=== PATIENT | female | born 1930 | race Caucasian/White ===

== ENCOUNTER 2018-06-17 20:34 | Inpatient (IN) | payer MEDICARE, MEDICAID ==
[2018-06-17] MEDS ORDERED: Metoclopramide 10 MG/2 ML SDV IVPUSH ONE (21:01)
--- NOTE | 2018-06-17 21:01 | EDM.PDOC ---
ED HPI GENERAL MEDICAL PROBLEM - General Chief Complaint: Abdominal Pain Stated Complaint: nausea vomiting Time Seen by Provider: 06/17/18 20:51 Source of Information: Reports: Patient, Family History Limitations: Reports: No Limitations - History of Present Illness INITIAL COMMENTS - FREE TEXT/NARRATIVE: 87-year-old female presents to the ED with her daughter. Patient has significant dementia. The history suggests that she's had vomiting for the last 4 days. Nothing is stayed down today at all. She tried some toast earlier this morning which came back up and a below-knee sandwich at noon came back up as well. Emesis is primarily bilious and light cooper in color. No noted by the daughter. Or she came into the ED. Nausea comes in waves according to the patient. She is a very vague historian. She complains claims that her abdominal pain is kind of diffuse and can localize attend one spot. Previous bowel obstruction many years ago requiring open surgery. Unclear what surgery she may have had prior to this. Possible hysterectomy. Far as the daughter knows she still has her gallbladder and appendix in. Patient is very weak and pallid. She is afebrile on exam. She prefers to lie still with her eyes closed but does answer questions when probed. Patient reports last bowel was probably 2 days ago but she is uncertain. Onset: Gradual Onset Date: 06/14/18 (Apparently has been vomiting intermittently for the last 4 days. Not much food or fluid has stay down at all.) Duration: Day(s):, Getting Worse Location: Reports: Abdomen (Complaints of diabetes abdominal discomfort but not feeling all that bloated. She is unsure if she is passing flatus.) Quality: Reports: Other (Intractable nausea and vomiting 4 days.) Severity: Moderate Improves with: Reports: None Worsens with: Reports: None Context: Reports: Other (Spontaneous occurrence of nausea vomiting associated with diffuse abdominal pain.). Denies: Activity, Exercise, Lifting, Sick Contact, Trauma Associated Symptoms: Reports: Confusion, Loss of Appetite, Malaise, Nausea/ Vomiting (Intractable for the last 4 days.), Shortness of Breath. Denies: Chest Pain (Patient has advanced dementia.), Cough, cough w sputum, Rash, Seizure, Syncope Treatments ASSEMBLY LINE UPHOLSTERER: Reports: Other (see below) (Likely vomited up the tramadol.) Other Treatments ASSEMBLY LINE UPHOLSTERER: tramadol at 1700 - Related Data Allergies Allergy/AdvReac Type Severity Reaction Status Date / Time No Known Allergies Allergy Verified 06/17/18 20:47 Home Meds: Home Meds Ibuprofen [Advil] 200 mg PO ASDIRECTED PRN 06/17/18 [History] Past Medical History HEENT History: Reports: Hard of Hearing, Impaired Vision Gastrointestinal History: Reports: Bowel Obstruction RADIO DISPATCHER History: Reports: Psychiatric History: Reports: Dementia - Past Surgical History Female Surgical History: Reports: Other (See Below) Other Female Surgeries/Procedures: prolapsed uterus with revision Social & Family History - Family History Family Medical History: Noncontributory - Tobacco Use Smoking Status *Q: Never Smoker - Caffeine Use Caffeine Use: Reports: Coffee - Recreational Drug Use Recreational Drug Use: No - Living Situation & Occupation Living situation: Reports: , Alone Occupation: Retired ED ROS GENERAL - Review of Systems Review Of Systems: See Below Constitutional: Reports: Malaise, Weakness, Fatigue, Decreased Appetite, Weight Loss. Denies: Fever, Chills HEENT: Reports: Glasses, Vision Change (Apparently has macular degeneration.) Respiratory: Reports: Shortness of Breath. Denies: Wheezing, Pleuritic Chest Pain (Valley short of breath.), Cough, Sputum Cardiovascular: Reports: Blood Pressure Problem, Dyspnea on Exertion, Lightheadedness. Denies: Chest Pain, Claudication, Edema, Orthopnea (Chronic hypertension) Endocrine: Reports: Fatigue (Chronically) GI/Abdominal: Reports: Abdominal Pain, Nausea (See history of present illness), Vomiting (Reportedly having nausea and vomiting for last 4 days.) : Reports: Frequency, Incontinence (Urge and stress components) Musculoskeletal: Reports: Back Pain, Joint Pain (Knees hips neck and shoulders at times) Skin: Reports: Pallor (Versus fairly easily.), Bruising Neurological: Reports: Confusion, Difficulty Walking (Weakness at this time), Weakness. Denies: Dizziness, Headache, Numbness, Pre-Existing Deficit, Seizure , Syncope, Tingling Psychiatric: Reports: No Symptoms Hematologic/Lymphatic: Reports: No Symptoms Immunologic: Reports: No Symptoms ED EXAM, GI/ABD - Physical Exam Exam: See Below Exam Limited By: Altered Mental Status (Mildly confused but she does answer questions to the best of her ability at this time. The daughter indicates that answers need to be taken with a gr of salt as her dementia is fairly advanced) General Appearance: No Apparent Distress (Prefers to lie still with her eyes closed but does open them to answer questions.), Thin, Other (Very pallid.) Eyes: Bilateral: Proptosis (Pallor both lower peripheral margins) Throat/Mouth: Other (Tongue is mildly dry.) Head: Atraumatic, Normocephalic Neck: Normal Inspection, Limited Range of Motion. No: Carotid Bruit, Lymphadenopathy (L), Lymphadenopathy (R) (Loss of flexion and extension) Respiratory/Chest: No Respiratory Distress, Lungs Clear, Normal Breath Sounds, No Accessory Muscle Use Cardiovascular: Regular Rate, Rhythm, No Edema, No Gallop, No Murmur, No Rub. No: Normal Peripheral Pulses GI/Abdominal Exam: Soft, Tender (Perhaps very mildly tender left mid lateral abdomen), Abnormal Bowel Sounds (Signs are slightly Hyperactive throughout all 4 quadrants.). No: Guarding, Rigid ( and left upper quadrant without rebound or guarding), Rebound Back Exam: Normal Inspection, Full Range of Motion, Other. No: CVA Tenderness ( L), CVA Tenderness (R) Extremities: Normal Inspection, Normal Range of Motion, Non-Tender, No Pedal Edema Neurological: Alert, CN II-XII Intact. No: Oriented (disoriented to time) Psychiatric: Flat Affect Skin Exam: Warm, Dry, Intact, Pallor (Quite pallid.) EKG INTERPRETATION EKG Date: 06/17/18 Time: 22:01 Rhythm: NSR Rate (Beats/Min): 62 Bois D Arc: LAD-Left Bois D Arc Deviation (Left axis deviation of -44.) P-Wave: Enlarged (Suspect left atrial hypertrophy) QRS: Other (Left ventricular hypertrophy pattern. There is a nonspecific intraventricular conduction delay.) ST-T: Other (T-wave flattening V4 to V6 and lead 2. U-wave inversion in lead 3 and aVF nonspecific findings) QT: Prolonged (Mildly prolonged.) EKG Interpretation Comments: Abnormal ECG Course - Vital Signs Last Recorded V/S: Last Vital Signs Temp 36.6 C 06/17/18 20:44 Pulse 65 06/17/18 20:44 Resp 18 06/17/18 20:44 BP 174/72 H 06/17/18 20:44 Pulse Ox 98 06/17/18 20:44 - Orders/Labs/Meds Orders: Active Orders 24 hr Category Date Time Status EKG Documentation Completion [RC] STAT Care 06/17/18 21:02 Active Abdomen 1V Flat [CR] Stat Exams 06/17/18 21:03 Taken Chest 1V Frontal [CR] Stat Exams 06/17/18 21:02 Taken CULTURE BLOOD [BC] Stat Lab 06/17/18 21:20 Received CULTURE BLOOD [BC] Stat Lab 06/17/18 21:35 Received Dextrose 5%-Lactated Ringers 1,000 ml Med 06/17/18 21:15 Active IV ASDIRECTED Blood Culture x2 Reflex Set [OM.PC] Stat Oth 06/17/18 21:03 Ordered Medication Orders Dextrose/Lactated Ringer's (Dextrose 5%-Lactated Ringers) 1,000 mls @ 250 mls/ hr IV ASDIRECTED MANOJ Last Admin: 06/17/18 21:10 Dose: 250 mls/hr Labs: Laboratory Tests 06/17/18 06/17/18 06/17/18 Range/Units 21:00 21:00 21:00 WBC 9.97 (3.98-10.04) K/mm3 RBC 4.42 (3.98-5.22) M/mm3 Hgb 13.6 (11.2-15.7) gm/L Hct 39.6 (34.1-44.9) % MCV 89.6 (79.4-94.8) fl MCH 30.8 (25.6-32.2) pg MCHC 34.3 (32.2-35.5) g/dl RDW Std Deviation 40.8 (36.4-46.3) fL Plt Count 286 (182-369) K/mm3 MPV 10.9 (9.4-12.3) fl Neutrophils % (Manual) 85 H (40-60) % Band Neutrophils % 0 (0-10) % Lymphocytes % (Manual) 12 L (20-40) % Atypical Lymphs % 0 % Monocytes % (Manual) 2 (2-10) % Eosinophils % (Manual) 1 (0.7-5.8) % Basophils % (Manual) 0 L (0.1-1.2) Platelet Estimate Adequate RBC Morph Comment Normal PT 10.3 (9.5-12.1) SECONDS INR 0.94 Sodium 128 L (136-145) mEq/L Potassium 4.0 (3.5-5.1) mEq/L Chloride 92 L (98-107) mEq/L Carbon Dioxide 23 (21-32) mEq/L Anion Gap 17.0 H (5-15) BUN 16 (7-18) mg/dL Creatinine 1.5 H (0.55-1.02) mg/dL Est Cr Clr Drug Dosing 23.56 mL/min Estimated GFR (MDRD) 33 (>60) mL/min BUN/Creatinine Ratio 10.7 L (14-18) Glucose 113 (83-115) mg/dL Lactic Acid (0.4-2.0) mmol/L Calcium 9.1 (8.5-10.1) mg/dL Magnesium 2.0 (1.8-2.4) mg/dl Total Bilirubin 0.5 (0.2-1.0) mg/dL AST 23 (15-37) U/L ALT 22 (14-59) U/L Alkaline Phosphatase 76 (46-116) U/L CK-MB (CK-2) 2.6 (0-3.6) ng/ml Troponin I < 0.017 (0.00-0.056) ng/mL C-Reactive Protein 0.2 (<1.0) mg/dL NT-Pro-B Natriuret Pep (0-450) pg/mL Total Protein 7.1 (6.4-8.2) g/dl Albumin 3.7 (3.4-5.0) g/dl Globulin 3.4 gm/dL Albumin/Globulin Ratio 1.1 (1-2) Lipase 141 (73-393) U/L Urine Color (Yellow) Urine Appearance (Clear) Urine pH (5.0-8.0) Ur Specific [place] (1.005-1.030) Urine Protein (Negative) Urine Glucose (UA) (Negative) Urine Ketones (Negative) Urine Occult Blood (Negative) Urine Nitrite (Negative) Urine Bilirubin (Negative) Urine Urobilinogen (0.2-1.0) Ur Leukocyte Esterase (Negative) Urine RBC (0-5) /hpf Urine WBC (0-5) /hpf Ur Epithelial Cells (0-5) /hpf Urine Bacteria (FEW) /hpf Hyaline Casts (0-5) /lpf Urine Mucus (FEW) /hpf Ketones (0.0-0.3) mM 01/03/19 01/03/19 01/03/19 Range/Units 21:00 21:20 21:20 WBC (3.98-10.04) K/mm3 RBC (3.98-5.22) M/mm3 Hgb (11.2-15.7) gm/L Hct (34.1-44.9) % MCV (79.4-94.8) fl MCH (25.6-32.2) pg MCHC (32.2-35.5) g/dl RDW Std Deviation (36.4-46.3) fL Plt Count (182-369) K/mm3 MPV (9.4-12.3) fl Neutrophils % (Manual) (40-60) % Band Neutrophils % (0-10) % Lymphocytes % (Manual) (20-40) % Atypical Lymphs % % Monocytes % (Manual) (2-10) % Eosinophils % (Manual) (0.7-5.8) % Basophils % (Manual) (0.1-1.2) Platelet Estimate RBC Morph Comment PT (9.5-12.1) SECONDS INR Sodium (136-145) mEq/L Potassium (3.5-5.1) mEq/L Chloride (98-107) mEq/L Carbon Dioxide (21-32) mEq/L Anion Gap (5-15) BUN (7-18) mg/dL Creatinine (0.55-1.02) mg/dL Est Cr Clr Drug Dosing mL/min Estimated GFR (MDRD) (>60) mL/min BUN/Creatinine Ratio (14-18) Glucose (83-115) mg/dL Lactic Acid 0.9 (0.4-2.0) mmol/L Calcium (8.5-10.1) mg/dL Magnesium (1.8-2.4) mg/dl Total Bilirubin (0.2-1.0) mg/dL AST (15-37) U/L ALT (14-59) U/L Alkaline Phosphatase (46-116) U/L CK-MB (CK-2) (0-3.6) ng/ml Troponin I (0.00-0.056) ng/mL C-Reactive Protein (<1.0) mg/dL NT-Pro-B Natriuret Pep 313 (0-450) pg/mL Total Protein (6.4-8.2) g/dl Albumin (3.4-5.0) g/dl Globulin gm/dL Albumin/Globulin Ratio (1-2) Lipase (73-393) U/L Urine Color (Yellow) Urine Appearance (Clear) Urine pH (5.0-8.0) Ur Specific [place] (1.005-1.030) Urine Protein (Negative) Urine Glucose (UA) (Negative) Urine Ketones (Negative) Urine Occult Blood (Negative) Urine Nitrite (Negative) Urine Bilirubin (Negative) Urine Urobilinogen (0.2-1.0) Ur Leukocyte Esterase (Negative) Urine RBC (0-5) /hpf Urine WBC (0-5) /hpf Ur Epithelial Cells (0-5) /hpf Urine Bacteria (FEW) /hpf Hyaline Casts (0-5) /lpf Urine Mucus (FEW) /hpf Ketones 0.83 (0.0-0.3) mM 06/17/18 Range/Units 22:19 WBC (3.98-10.04) K/mm3 RBC (3.98-5.22) M/mm3 Hgb (11.2-15.7) gm/L Hct (34.1-44.9) % MCV (79.4-94.8) fl MCH (25.6-32.2) pg MCHC (32.2-35.5) g/dl RDW Std Deviation (36.4-46.3) fL Plt Count (182-369) K/mm3 MPV (9.4-12.3) fl Neutrophils % (Manual) (40-60) % Band Neutrophils % (0-10) % Lymphocytes % (Manual) (20-40) % Atypical Lymphs % % Monocytes % (Manual) (2-10) % Eosinophils % (Manual) (0.7-5.8) % Basophils % (Manual) (0.1-1.2) Platelet Estimate RBC Morph Comment PT (9.5-12.1) SECONDS INR Sodium (136-145) mEq/L Potassium (3.5-5.1) mEq/L Chloride (98-107) mEq/L Carbon Dioxide (21-32) mEq/L Anion Gap (5-15) BUN (7-18) mg/dL Creatinine (0.55-1.02) mg/dL Est Cr Clr Drug Dosing mL/min Estimated GFR (MDRD) (>60) mL/min BUN/Creatinine Ratio (14-18) Glucose (83-115) mg/dL Lactic Acid (0.4-2.0) mmol/L Calcium (8.5-10.1) mg/dL Magnesium (1.8-2.4) mg/dl Total Bilirubin (0.2-1.0) mg/dL AST (15-37) U/L ALT (14-59) U/L Alkaline Phosphatase (46-116) U/L CK-MB (CK-2) (0-3.6) ng/ml Troponin I (0.00-0.056) ng/mL C-Reactive Protein (<1.0) mg/dL NT-Pro-B Natriuret Pep (0-450) pg/mL Total Protein (6.4-8.2) g/dl Albumin (3.4-5.0) g/dl Globulin gm/dL Albumin/Globulin Ratio (1-2) Lipase (73-393) U/L Urine Color Yellow (Yellow) Urine Appearance Clear (Clear) Urine pH 6.5 (5.0-8.0) Ur Specific [place] 1.025 (1.005-1.030) Urine Protein Trace H (Negative) Urine Glucose (UA) Negative (Negative) Urine Ketones 2+ H (Negative) Urine Occult Blood Trace-intact H (Negative) Urine Nitrite Negative (Negative) Urine Bilirubin Negative (Negative) Urine Urobilinogen 0.2 (0.2-1.0) Ur Leukocyte Esterase Negative (Negative) Urine RBC 0-5 (0-5) /hpf Urine WBC 0-5 (0-5) /hpf Ur Epithelial Cells 0-5 (0-5) /hpf Urine Bacteria Not seen (FEW) /hpf Hyaline Casts 0-5 (0-5) /lpf Urine Mucus Moderate H (FEW) /hpf Ketones (0.0-0.3) mM Meds: Medications Generic Name Dose Route Start Last Admin Trade Name Freq PRN Reason Stop Dose Admin Dextrose/Lactated Ringer's 1,000 mls @ 250 mls/hr 06/17/18 21:15 06/17/18 21: 10 Dextrose 5%-Lactated Ringers IV 250 mls/hr ASDIRECTED MANOJ Administration Discontinued Medications Generic Name Dose Route Start Last Admin Trade Name Harini PRN Reason Stop Dose Admin Hydromorphone HCl 0.25 mg 06/17/18 21:02 06/17/18 21:13 Dilaudid IVPUSH 06/17/18 21:03 0.25 mg ONETIME ONE Administration Metoclopramide HCl 5 mg 06/17/18 21:01 06/17/18 21:11 Reglan IVPUSH 06/17/18 21:02 5 mg ONETIME ONE Administration Ondansetron HCl 4 mg 06/17/18 22:42 06/17/18 22:52 Zofran IVPUSH 06/17/18 22:43 4 mg ONETIME ONE Administration - Radiology Interpretation Free Text/Narrative:: 87-year-old female presents to the ED with her daughter. She apparently lives alone. Apparently she's been vomiting off and on for the last 4 days nothing to stay down at all today. She believes her last bowel movement was 2 days ago. She complains of diffuse mild abdominal pain I tried to get her to rate it and she rates it as a 1 or 2 out of 10. Does have very active bowel sounds in all 4 quadrants with minimal distention and tympany to percussion. Tenderness appreciated on palpation left upper quadrant left lateral midabdomen. She appears quite thin. She is very pallid. Afebrile. Vital signs are essentially normal. Plan 1 view chest x-ray one view abdomen 2 done IV will be D5 Ringer's lactate at 250 mils per hour. Given Reglan 5 mg IV for nausea relief and Dilaudid 0.25 mg IV for abdominal pain relief. The T labs including blood cultures 2 will be changed serum lactic acid and serum ketones as well. No ketones on her breath however. Urinalysis be obtained by catheterization. - Re-Assessments/Exams Free Text/Narrative Re-Assessment/Exam: 06/17/18 21:53 x-ray of the abdomen reveals increased stool throughout the right hemicolon and some in the rectal vault. There is no bowel obstruction signs or symptoms. Bladder appears to be slightly full on plain films as well. She has a deformity compatible with an old fracture of the pubic symphysis on the left side. He is to be well-healed. Chest x-ray reveals clear lung salvador and normal cardiac silhouette. Aortic arch is heavily calcified. 06/17/18 22:05 Total white count is 9.97 with 85% neutrophils no bands cells reported. Hemoglobin is 13.6 with hematocrit of 39.6. Plan account is 286,000. PT is 10.3 with an INR of 0.94. Sodium is low at 128. Potassium is 4.0. Chloride 92 with a bicarbonate of 23. And a gap is mildly elevated at 17.0. BUN is 16 with a creatinine of 1.5. GFR is 33 i.e. stage III chronic kidney disease. Glucose is 113. Calcium is 9.1. Lactic acid was 0.9. Magnesium is 2.0. Liver function is normal. CK-MB fraction is 2.6 troponin I is less than 0.017. C -reactive protein is 0.2. BNP is 313. Lipase 141 ketones elevated at 0.83. 06/17/18 23:29 Urinalysis shows a trace of protein .2+ ketones .leukocyte esterase negative. 06/18/18 00:[address] Sanchez cone former hospitalist and the plan will be to admit her to the hospital on telemetry. She will be admitted for observation status in the hopes of correcting her metabolic acidosis and ketosis from not eating 4 days mild volume depletion. And hyponatremia. Departure - Departure Time of Disposition: 00:36 Disposition: Home, Self-Care 01 Condition: Fair Clinical Impression: Nausea and vomiting in adult patient, Hyponatremia, Metabolic acidosis with increased anion gap and accumulation of organic acids, Constipation by delayed colonic transit Abdominal pain Qualifiers: Abdominal location: generalized Qualified Code(s): R10.84 - Generalized abdominal pain - Discharge Information *PRESCRIPTION DRUG MONITORING PROGRAM REVIEWED*: Not Applicable *COPY OF PRESCRIPTION DRUG MONITORING REPORT IN PATIENT DONNA: Not Applicable Instructions: Nausea and Vomiting, Adult Referrals: PCP,None [Primary Care Provider] - Forms: ED Department Discharge - My Orders Last 24 Hours: My Active Orders 06/17/18 21:02 EKG Documentation Completion [RC] STAT Chest 1V Frontal [CR] Stat 06/17/18 21:03 Abdomen 1V Flat [CR] Stat Blood Culture x2 Reflex Set [OM.PC] Stat 06/17/18 21:15 Dextrose 5%-Lactated Ringers 1,000 ml IV ASDIRECTED 06/17/18 21:20 CULTURE BLOOD [BC] Stat 06/17/18 21:35 CULTURE BLOOD [BC] Stat - Assessment/Plan Last 24 Hours: My Active Orders 06/17/18 21:02 EKG Documentation Completion [RC] STAT Chest 1V Frontal [CR] Stat 06/17/18 21:03 Abdomen 1V Flat [CR] Stat Blood Culture x2 Reflex Set [OM.PC] Stat 06/17/18 21:15 Dextrose 5%-Lactated Ringers 1,000 ml IV ASDIRECTED 06/17/18 21:20 CULTURE BLOOD [BC] Stat 06/17/18 21:35 CULTURE BLOOD [BC] Stat
[2018-06-17] MEDS ORDERED: HYDROmorphone 1 MG/ML Syringe IVPUSH ONE (21:02)
[2018-06-17] MEDS ORDERED: Dextrose 5%-Lactated Ringers 1,000 ML IV SCH (21:15)
[2018-06-17] MEDS ORDERED: Ondansetron 4 MG/2 ML SDV IVPUSH ONE (22:42)
[2018-06-18] MEDS: Dextrose 5%-Lactated Ringers 1,000 ML IV SCH ×4 (01:30→21:21)
--- NOTE | 2018-06-18 06:59 | PCM.HP ---
H&P History of Present Illness - General Date of Service: 06/18/18 Admit Problem/Dx: Admission Diagnosis/Problem Admission Diagnosis/Problem Hyponatremia Source of Information: Old Records, Provider, RN, RN Notes Reviewed History Limitations: Reports: No Limitations - History of Present Illness Initial Comments - Free Text/Narative: Bridget Holder is an 87 yo female patient who presented to our ED yesterday evening with her daughter for vomiting. Patient has significant dementia however her daughter reports emesis has been ongoing for past 4 days. She reports she has been unable to keep anything down at all the day up to coming to the ED. Emesis reported to be bilious and light cooper in color as noted by the daughter. Nausea comes in waves according to the patient and she is noted to be a very vague historian. She reports diffuse abdominal pain and a prior bowel obstruction many years ago which required open surgery. Daughter reports as far she no she still has her gallbladder and appendix. Patient is very weak and palate. She is afebrile on exam. Patient prefers to lie still with her eyes closed but does ask questions when asked. Reports last bowel movement was 2 days ago but she is uncertain exactly. In the ED a 12-lead EKG was obtained showing sinus rhythm at a rate of 62 bpm. Left axis deviation was noted in the large P wave was also noted. LVH pattern was observed along with a nonspecific intraventricular conduction delay. T- wave flattening in V4 through V6 and lead II to along with T-wave inversion in III and aVF are noted along with a mildly prolonged QT. Temp is 36.6C. Pulse 55. Respirations 18. Blood pressure high at 174/72. Pulse ox 98%. Labs are obtained: WBC is normal at 9.97. Hemoglobin 13.6. Hematocrit 39.6. She is normocytic. Platelets good at 286,000. Neutrophils are elevated at 85%. Band neutrophils are noted to be 0. PT is 10.3. INR 0.94. Sodium is low at 128. Potassium 4.0. Chloride 92. Carbon dioxide 23. Anion gap is high at 17.0. BUN is 16. Creatinine 1.5. EGFR 33. Glucose is 113. Calcium 9.1. Magnesium 2.0. Total bilirubin 0.5. AST is 23, ALT 22, alkaline phosphatase 76. CK-MB is 2.6. Troponin is less than 0.017. CRP is 0.2. Protein 7.1. Albumin is 3.7. Lipase 141. Lactic acid is 0.9. ProBNP is 313. Urine ketones are noted to be 0.83. UA is negative however trace protein, 2+ ketones, trace intact blood are noted. Given 0.25 mg IV Dilaudid, 5 mg Reglan, 4 mg Zofran. She also started on D5 LR at 125 mils an hour. His abdomen is obtained and reportedly reveals increased stool throughout the right hemicolon and rectal full no signs of bowel obstruction bladder appears to be full and there is a deformity compatible with old fracture on the pubic symphysis of the left side. It's appears to be well healed. Nothing acute is noted. She subsequently admitted to the medical floor observation status on telemetry. She has a history of: Hard of hearing, impaired vision, prior bowel obstruction, dementia. She is a nonsmoker. She does not have a primary care provider listed. A DNR/DNI. 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: Psychiatric History: Reports: Dementia - Past Surgical History Female Surgical History: Reports: Other (See Below) Other Female Surgeries/Procedures: prolapsed uterus with revision Social & Family History - Family History Family Medical History: Noncontributory - Tobacco Use Smoking Status *Q: Never Smoker Second Hand Smoke Exposure: No - Caffeine Use Caffeine Use: Reports: Coffee - Recreational Drug Use Recreational Drug Use: No - Living Situation & Occupation Living situation: Reports: , Alone Occupation: Retired H&P Review of Systems - Review of Systems: Review Of Systems: See Below General: Reports: No Symptoms, Malaise, Weakness, Fatigue, Decreased Appetite. Denies: Fever, Chills HEENT: Reports: No Symptoms. Denies: Headaches Pulmonary: Reports: No Symptoms. Denies: Shortness of Breath, Wheezing, Pleuritic Chest Pain, Cough, Sputum Cardiovascular: Reports: No Symptoms. Denies: Chest Pain, Palpitations, Dyspnea on Exertion, Lightheadedness Gastrointestinal: Reports: No Symptoms. Denies: Abdominal Pain, Hematemesis, Hematochezia, Melena, Nausea, Vomiting Genitourinary: Reports: Frequency, Incontinence. Denies: Pain Musculoskeletal: Reports: No Symptoms Skin: Reports: No Symptoms Psychiatric: Reports: Confusion (Chronic dementia ) Neurological: Reports: No Symptoms. Denies: Difficulty Walking, Gait Disturbance Hematologic/Lymphatic: Reports: Easy Bruising Immunologic: Reports: No Symptoms Exam - Exam Exam: See Below - Vital Signs Vital Signs: Last Vital Signs Temp 97.9 F 06/18/18 06:02 Pulse 57 L 06/18/18 06:02 Resp 16 06/18/18 06:02 BP 142/82 H 06/18/18 06:02 Pulse Ox 92 L 06/18/18 06:02 Weight: 137 lb 1.6 oz - Exam Quality Assessment: DVT Prophylaxis General: Alert, Cooperative. No: Oriented, Mild Distress HEENT: Conjunctiva Clear, EACs Clear, EOMI, Hearing Intact, Mucosa Moist & [place] , Nares Patent, Posterior Pharynx Clear, PERRLA Neck: Supple, Trachea Midline Lungs: Clear to Auscultation, Normal Respiratory Effort Cardiovascular: Regular Rate, Regular Rhythm GI/Abdominal Exam: Normal Bowel Sounds, Soft, Non-Tender, No Distention, No Abnormal Bruit (Female) Exam: Deferred Rectal (Female) Exam: Deferred Back Exam: Normal Inspection, Full Range of Motion Extremities: Normal Inspection, Normal Range of Motion, Non-Tender, No Pedal Edema, Normal Capillary Refill Skin: Warm, Dry, Intact Neurological: Cranial Nerves Intact (grossly ) Neuro Extensive - Mental Status: Alert, Normal Mood/Affect - Patient Data Lab Results Last 24 hrs: Laboratory Results - last 24 hr 06/17/18 06/17/18 06/17/18 Range/Units 21:00 21:00 21:00 WBC 9.97 (3.98-10.04) K/mm3 RBC 4.42 (3.98-5.22) M/mm3 Hgb 13.6 (11.2-15.7) gm/L Hct 39.6 (34.1-44.9) % MCV 89.6 (79.4-94.8) fl MCH 30.8 (25.6-32.2) pg MCHC 34.3 (32.2-35.5) g/dl RDW Std Deviation 40.8 (36.4-46.3) fL Plt Count 286 (182-369) K/mm3 MPV 10.9 (9.4-12.3) fl Neutrophils % (Manual) 85 H (40-60) % Band Neutrophils % 0 (0-10) % Lymphocytes % (Manual) 12 L (20-40) % Atypical Lymphs % 0 % Monocytes % (Manual) 2 (2-10) % Eosinophils % (Manual) 1 (0.7-5.8) % Basophils % (Manual) 0 L (0.1-1.2) Platelet Estimate Adequate RBC Morph Comment Normal PT 10.3 (9.5-12.1) SECONDS INR 0.94 Sodium 128 L (136-145) mEq/L Potassium 4.0 (3.5-5.1) mEq/L Chloride 92 L (98-107) mEq/L Carbon Dioxide 23 (21-32) mEq/L Anion Gap 17.0 H (5-15) BUN 16 (7-18) mg/dL Creatinine 1.5 H (0.55-1.02) mg/dL Est Cr Clr Drug Dosing 23.56 mL/min Estimated GFR (MDRD) 33 (>60) mL/min BUN/Creatinine Ratio 10.7 L (14-18) Glucose 113 (83-115) mg/dL Serum Osmolality (280-300) mosm/kg Lactic Acid (0.4-2.0) mmol/L Calcium 9.1 (8.5-10.1) mg/dL Magnesium 2.0 (1.8-2.4) mg/dl Total Bilirubin 0.5 (0.2-1.0) mg/dL AST 23 (15-37) U/L ALT 22 (14-59) U/L Alkaline Phosphatase 76 (46-116) U/L CK-MB (CK-2) 2.6 (0-3.6) ng/ml Troponin I < 0.017 (0.00-0.056) ng/mL C-Reactive Protein 0.2 (<1.0) mg/dL NT-Pro-B Natriuret Pep (0-450) pg/mL Total Protein 7.1 (6.4-8.2) g/dl Albumin 3.7 (3.4-5.0) g/dl Globulin 3.4 gm/dL Albumin/Globulin Ratio 1.1 (1-2) Lipase 141 (73-393) U/L Urine Color (Yellow) Urine Appearance (Clear) Urine pH (5.0-8.0) Ur Specific [place] (1.005-1.030) Urine Protein (Negative) Urine Glucose (UA) (Negative) Urine Ketones (Negative) Urine Occult Blood (Negative) Urine Nitrite (Negative) Urine Bilirubin (Negative) Urine Urobilinogen (0.2-1.0) Ur Leukocyte Esterase (Negative) Urine RBC (0-5) /hpf Urine WBC (0-5) /hpf Ur Epithelial Cells (0-5) /hpf Urine Bacteria (FEW) /hpf Hyaline Casts (0-5) /lpf Urine Mucus (FEW) /hpf Ketones (0.0-0.3) mM 06/17/18 06/17/18 06/17/18 Range/Units 21:00 21:00 21:20 WBC (3.98-10.04) K/mm3 RBC (3.98-5.22) M/mm3 Hgb (11.2-15.7) gm/L Hct (34.1-44.9) % MCV (79.4-94.8) fl MCH (25.6-32.2) pg MCHC (32.2-35.5) g/dl RDW Std Deviation (36.4-46.3) fL Plt Count (182-369) K/mm3 MPV (9.4-12.3) fl Neutrophils % (Manual) (40-60) % Band Neutrophils % (0-10) % Lymphocytes % (Manual) (20-40) % Atypical Lymphs % % Monocytes % (Manual) (2-10) % Eosinophils % (Manual) (0.7-5.8) % Basophils % (Manual) (0.1-1.2) Platelet Estimate RBC Morph Comment PT (9.5-12.1) SECONDS INR Sodium (136-145) mEq/L Potassium (3.5-5.1) mEq/L Chloride (98-107) mEq/L Carbon Dioxide (21-32) mEq/L Anion Gap (5-15) BUN (7-18) mg/dL Creatinine (0.55-1.02) mg/dL Est Cr Clr Drug Dosing mL/min Estimated GFR (MDRD) (>60) mL/min BUN/Creatinine Ratio (14-18) Glucose (83-115) mg/dL Serum Osmolality 269 L (280-300) mosm/kg Lactic Acid 0.9 (0.4-2.0) mmol/L Calcium (8.5-10.1) mg/dL Magnesium (1.8-2.4) mg/dl Total Bilirubin (0.2-1.0) mg/dL AST (15-37) U/L ALT (14-59) U/L Alkaline Phosphatase (46-116) U/L CK-MB (CK-2) (0-3.6) ng/ml Troponin I (0.00-0.056) ng/mL C-Reactive Protein (<1.0) mg/dL NT-Pro-B Natriuret Pep 313 (0-450) pg/mL Total Protein (6.4-8.2) g/dl Albumin (3.4-5.0) g/dl Globulin gm/dL Albumin/Globulin Ratio (1-2) Lipase (73-393) U/L Urine Color (Yellow) Urine Appearance (Clear) Urine pH (5.0-8.0) Ur Specific [place] (1.005-1.030) Urine Protein (Negative) Urine Glucose (UA) (Negative) Urine Ketones (Negative) Urine Occult Blood (Negative) Urine Nitrite (Negative) Urine Bilirubin (Negative) Urine Urobilinogen (0.2-1.0) Ur Leukocyte Esterase (Negative) Urine RBC (0-5) /hpf Urine WBC (0-5) /hpf Ur Epithelial Cells (0-5) /hpf Urine Bacteria (FEW) /hpf Hyaline Casts (0-5) /lpf Urine Mucus (FEW) /hpf Ketones (0.0-0.3) mM 06/17/18 06/17/18 Range/Units 21:20 22:19 WBC (3.98-10.04) K/mm3 RBC (3.98-5.22) M/mm3 Hgb (11.2-15.7) gm/L Hct (34.1-44.9) % MCV (79.4-94.8) fl MCH (25.6-32.2) pg MCHC (32.2-35.5) g/dl RDW Std Deviation (36.4-46.3) fL Plt Count (182-369) K/mm3 MPV (9.4-12.3) fl Neutrophils % (Manual) (40-60) % Band Neutrophils % (0-10) % Lymphocytes % (Manual) (20-40) % Atypical Lymphs % % Monocytes % (Manual) (2-10) % Eosinophils % (Manual) (0.7-5.8) % Basophils % (Manual) (0.1-1.2) Platelet Estimate RBC Morph Comment PT (9.5-12.1) SECONDS INR Sodium (136-145) mEq/L Potassium (3.5-5.1) mEq/L Chloride (98-107) mEq/L Carbon Dioxide (21-32) mEq/L Anion Gap (5-15) BUN (7-18) mg/dL Creatinine (0.55-1.02) mg/dL Est Cr Clr Drug Dosing mL/min Estimated GFR (MDRD) (>60) mL/min BUN/Creatinine Ratio (14-18) Glucose (83-115) mg/dL Serum Osmolality (280-300) mosm/kg Lactic Acid (0.4-2.0) mmol/L Calcium (8.5-10.1) mg/dL Magnesium (1.8-2.4) mg/dl Total Bilirubin (0.2-1.0) mg/dL AST (15-37) U/L ALT (14-59) U/L Alkaline Phosphatase (46-116) U/L CK-MB (CK-2) (0-3.6) ng/ml Troponin I (0.00-0.056) ng/mL C-Reactive Protein (<1.0) mg/dL NT-Pro-B Natriuret Pep (0-450) pg/mL Total Protein (6.4-8.2) g/dl Albumin (3.4-5.0) g/dl Globulin gm/dL Albumin/Globulin Ratio (1-2) Lipase (73-393) U/L Urine Color Yellow (Yellow) Urine Appearance Clear (Clear) Urine pH 6.5 (5.0-8.0) Ur Specific [place] 1.025 (1.005-1.030) Urine Protein Trace H (Negative) Urine Glucose (UA) Negative (Negative) Urine Ketones 2+ H (Negative) Urine Occult Blood Trace-intact H (Negative) Urine Nitrite Negative (Negative) Urine Bilirubin Negative (Negative) Urine Urobilinogen 0.2 (0.2-1.0) Ur Leukocyte Esterase Negative (Negative) Urine RBC 0-5 (0-5) /hpf Urine WBC 0-5 (0-5) /hpf Ur Epithelial Cells 0-5 (0-5) /hpf Urine Bacteria Not seen (FEW) /hpf Hyaline Casts 0-5 (0-5) /lpf Urine Mucus Moderate H (FEW) /hpf Ketones 0.83 (0.0-0.3) mM Result Diagrams: 06/17/18 21:00 06/18/18 05:52 - Problem List (1) Abdominal pain SNOMED Code(s): 27789227 ICD Code: R10.9 - UNSPECIFIED ABDOMINAL PAIN Status: Acute Priority: Medium Current Visit: Yes Qualifiers: Abdominal location: generalized Qualified Code(s): R10.84 - Generalized abdominal pain (2) Constipation by delayed colonic transit SNOMED Code(s): 70985577 ICD Code: K59.01 - SLOW TRANSIT CONSTIPATION Status: Acute Priority: Medium Current Visit: Yes (3) Hyponatremia SNOMED Code(s): 09627389 ICD Code: E87.1 - HYPO-OSMOLALITY AND HYPONATREMIA Status: Acute Priority : High Current Visit: Yes (4) Metabolic acidosis with increased anion gap and accumulation of organic acids SNOMED Code(s): 15906690 ICD Code: E87.2 - ACIDOSIS Status: Acute Priority: High Current Visit: Yes (5) Nausea and vomiting in adult patient SNOMED Code(s): 05192718 ICD Code: R11.2 - NAUSEA WITH VOMITING, UNSPECIFIED Status: Acute Priority: High Current Visit: Yes Problem List Initiated/Reviewed/Updated: Yes Orders Last 24hrs: Active Orders 24 hr Category Date Time Status Admission Status [Patient Status] [ADT] Routine ADT 06/18/18 00:33 Active Up With Assistance [RC] ASDIRECTED Care 06/18/18 01:28 Active Clear Liquid Diet [DIET] Diet 06/18/18 Breakfast Active Abdomen 1V Flat [CR] Stat Exams 06/17/18 21:03 Taken Chest 1V Frontal [CR] Stat Exams 06/17/18 21:02 Taken COMPREHENSIVE METABOLIC PN,CMP [CHEM] Routine Lab 06/18/18 05:52 Received CULTURE BLOOD [BC] Stat Lab 06/17/18 21:20 Received CULTURE BLOOD [BC] Stat Lab 06/17/18 21:35 Received KETONES,BLOOD [CHEM] Routine Lab 06/18/18 05:52 Received Dextrose 5%-Lactated Ringers 1,000 ml Med 06/18/18 01:30 Active IV ASDIRECTED Ondansetron [Zofran] Med 06/18/18 01:28 Active 4 mg IVPUSH Q6HR PRN Blood Culture x2 Reflex Set [OM.PC] Stat Oth 06/17/18 21:03 Ordered Resuscitation Status Routine Resus Stat 06/18/18 01:28 Ordered Medication Orders Dextrose/Lactated Ringer's (Dextrose 5%-Lactated Ringers) 1,000 mls @ 150 mls/ hr IV ASDIRECTED MANOJ Last Admin: 06/18/18 01:30 Dose: 150 mls/hr Ondansetron HCl (Zofran) 4 mg IVPUSH Q6HR PRN PRN Reason: nausea Assessment/Plan Comment:: I/P: Acute: Nausea and vomiting -Reports nausea and vomiting for past 4 days -No hematemesis -No fever, No leukocytosis -Antiemetics as ordered -IV fluids as ordered -Blood cultures obtained and pending -Lactic acid 0.9 -CT Scan abdomen/pelvis ordered to r/o SBO -Negative, mild scattered stool throughout colon Dehydration -2/2 above -Unable to keep anything down -Elevated anion gap (17.0) -Mildly dry mucous membranes in ED -IV fluids as ordered Hyponatremia -Na 128 -IV fluids as ordered -Consider thermotabs PJ, improving -Unsure of baseline -Creatinine and GFR on last visit (11/08/15) were 1.4/36 -BUN 16-->15 -Creatinine 1.5-->1.3 -eGFR 33-->39 Constipation -Increased stool in right hemicolon and some in the rectal vault on abdominal x-ray -Likely worsened by above -No signs of bowel obstruction on abdominal X-ray -CT scan abdomen/pelvis ordered -Bowel medications as ordered -IV fluids as ordered -Clear liquid diet for now Chronic: Hard of hearing Impaired vision Prior bowel obstruction Dementia Plan: Admit to medical floor observation status on telemetry Other orders as indicated above No home medications Routine AM labs DVT/PE prophylaxis: lovenox PT/OT Prec[employer]er consult Code status: DNR/DNI; PCP: None - needs to establish
[2018-06-18] MEDS: Ondansetron 4 MG/2 ML SDV IVPUSH PRN ×2 (07:26→23:18)
[2018-06-18] MEDS ORDERED: Albuterol/Ipratropium 3.0-0.5 MG/3 ML Neb Soln NEB PRN (08:20)
[2018-06-18] MEDS ORDERED: Metoprolol Tartrate 5 MG/5 ML SDV IVPUSH PRN ×2 (08:22→08:37)
[2018-06-18] MEDS ORDERED: hydrALAZINE 20 MG/ML SDV IVPUSH PRN ×2 (08:22→08:37)
[2018-06-18] MEDS ORDERED: Sodium Chloride 0.9% 1,000 ML IV SCH (08:30)
[2018-06-18] MEDS: Potassium Chloride 10 MEQ in Premix Bag 1 BAG IV SCH ×4 (08:35→13:52)
[2018-06-18] MEDS ORDERED: Bisacodyl 5 MG Tab PO PRN (08:36)
[2018-06-18] MEDS ORDERED: Acetaminophen/HYDROcodone 325-5 MG Tab PO PRN (08:36)
[2018-06-18] MEDS ORDERED: Polyethylene Glycol 3350 Powder 17 GM Packet PO PRN (08:36)
[2018-06-18] MEDS ORDERED: Docusate Sodium 100 MG Cap PO PRN (08:36)
[2018-06-18] MEDS: Enoxaparin 30 MG/0.3 ML Syringe SUBCUT SCH (08:51)
[2018-06-18] MEDS: Acetaminophen 325 MG Tab PO PRN ×2 (09:07→19:40)
--- NOTE | 2018-06-18 09:29 | CR ---
Abdomen: Supine view of the abdomen was obtained. Comparison: Prior right upper quadrant abdominal ultrasound and CT abdomen and pelvis dated 11/08/15 are available. Deformity is noted of the left pubic symphysis compatible with old healed trauma. Bony structures are otherwise within normal limits for the patient's age. Phleboliths are seen within the pelvis. Bowel gas pattern is normal. Impression: 1. Nothing acute is seen on supine abdominal x-ray. Diagnostic code #2
--- NOTE | 2018-06-18 09:29 | CR ---
Chest: Frontal view of the chest was obtained. Comparison: No prior chest x-ray. Heart size and mediastinum are within normal limits for age. Lungs are clear without acute parenchymal change. Bony structures are unremarkable for the patient's age. Impression: 1. Nothing acute is seen on frontal chest x-ray. Diagnostic code #1
[2018-06-18] MEDS: Bisacodyl 10 MG Supp RECTAL SCH ×2 (10:31→23:30)
--- NOTE | 2018-06-18 12:20 | CT ---
CT abdomen and pelvis Technique: Multiple axial sections were obtained from above the dome of the diaphragm inferiorly through the pubic symphysis. Intravenous contrast not utilized. Oral contrast has been given. Comparison: Prior CT abdomen and pelvis exam of 11/08/15. Findings: Small portion of the visualized lung bases show nothing acute. Noncontrast appearance of the liver contains no focal parenchymal abnormality. Spleen appears within normal limits. Adrenal glands show no nodule. Left kidney shows some atrophy and scarring, no hydronephrosis seen on either side. Gallbladder contains no calcified gallstones. Pancreas appears within normal limits. Aorta shows atherosclerotic calcification which continues into the iliac vessels. Appendix is seen which is normal in size. No pelvic mass or adenopathy is seen. No small bowel dilatation is seen. Mild increased stool is noted throughout the colon. Bone window settings show scoliosis within the spine. Deformity of the left pubic symphysis is seen compatible with old fracture. Impression: 1. Findings as noted above. Nothing acute is appreciated. Diagnostic code #2
[2018-06-18] MEDS: Aluminum Hydroxide/Magnesium Hydroxide/Simethicone Susp 30 ML Cup PO SCH ×2 (14:36→23:31)
[2018-06-18] MEDS: HYDROmorphone 1 MG/ML Syringe IVPUSH PRN (23:43)
[2018-06-19] MEDS: HYDROmorphone 1 MG/ML Syringe IVPUSH PRN ×2 (02:14→14:06)
[2018-06-19] MEDS: Dextrose 5%-Lactated Ringers 1,000 ML IV SCH ×3 (04:02→17:45)
[2018-06-19] MEDS: Enoxaparin 30 MG/0.3 ML Syringe SUBCUT SCH (09:55)
[2018-06-19] MEDS: Ondansetron 4 MG Tab.DIS PO PRN ×2 (10:18→16:19)
[2018-06-19] MEDS: Bisacodyl 10 MG Supp RECTAL SCH (10:23)
[2018-06-19] MEDS: Aluminum Hydroxide/Magnesium Hydroxide/Simethicone Susp 30 ML Cup PO SCH ×3 (10:23→14:34)
--- NOTE | 2018-06-19 14:59 | PCM.PN ---
- General Info Date of Service: 06/19/18 Subjective Update: [place] N?V; responding to laxatives; no SBO. Functional Status: Reports: Tolerating Diet, Ambulating - Review of Systems General: Reports: Weakness HEENT: Reports: No Symptoms Pulmonary: Reports: No Symptoms Cardiovascular: Reports: No Symptoms Gastrointestinal: Reports: Abdominal Pain, Nausea Genitourinary: Reports: No Symptoms Musculoskeletal: Reports: No Symptoms Skin: Reports: No Symptoms Neurological: Reports: No Symptoms Psychiatric: Reports: No Symptoms - Patient Data Vitals - Most Recent: Last Vital Signs Temp 36.7 C 06/19/18 12:15 Pulse 74 06/19/18 12:15 Resp 18 06/19/18 12:15 BP 123/89 06/19/18 12:15 Pulse Ox 95 06/19/18 12:15 Weight - Most Recent: 63.248 kg I&O - Last 24 Hours: Intake & Output 06/18/18 06/19/18 06/19/18 22:59 06:59 14:59 Intake Total 2775 1600 Output Total 50 Balance 2775 1550 Lab Results Last 24 Hours: Laboratory Results - last 24 hr 06/19/18 06/19/18 Range/Units 06:40 06:40 WBC 9.17 (3.98-10.04) K/mm3 RBC 4.21 (3.98-5.22) M/mm3 Hgb 13.1 (11.2-15.7) gm/L Hct 38.2 (34.1-44.9) % MCV 90.7 (79.4-94.8) fl MCH 31.1 (25.6-32.2) pg MCHC 34.3 (32.2-35.5) g/dl RDW Std Deviation 40.8 (36.4-46.3) fL Plt Count 240 (182-369) K/mm3 MPV 10.8 (9.4-12.3) fl Neut % (Auto) 81.2 H (34.0-71.1) % Lymph % (Auto) 8.6 L (19.3-51.7) % [place] % (Auto) 8.7 (4.7-12.5) % Eos % (Auto) 1.2 (0.7-5.8) Baso % (Auto) 0.1 (0.1-1.2) % Neut # (Auto) 7.44 H (1.56-6.13) K/mm3 Lymph # (Auto) 0.79 L (1.18-3.74) K/mm3 [place] # (Auto) 0.80 H (0.24-0.36) K/mm3 Eos # (Auto) 0.11 (0.04-0.36) K/mm3 Baso # (Auto) 0.01 (0.01-0.08) K/mm3 Manual Slide Review Abnormal smear Sodium 133 L (136-145) mEq/L Potassium 4.0 (3.5-5.1) mEq/L Chloride 97 L (98-107) mEq/L Carbon Dioxide 29 (21-32) mEq/L Anion Gap 11.0 (5-15) BUN 6 L (7-18) mg/dL Creatinine 1.3 H (0.55-1.02) mg/dL Est Cr Clr Drug Dosing 27.32 mL/min Estimated GFR (MDRD) 39 (>60) mL/min BUN/Creatinine Ratio 4.6 L (14-18) Glucose 135 H (83-115) mg/dL Calcium 8.9 (8.5-10.1) mg/dL Magnesium 1.8 (1.8-2.4) mg/dl Nate Results Last 24 Hours: Microbiology 06/17/18 21:35 Aerobic Blood Culture - Preliminary Blood - Venous - Lab Draw NO GROWTH AFTER 1 DAY Anaerobic Blood Culture - Preliminary NO GROWTH AFTER 1 DAY 06/17/18 21:20 Aerobic Blood Culture - Preliminary Blood - Venous NO GROWTH AFTER 1 DAY Anaerobic Blood Culture - Preliminary NO GROWTH AFTER 1 DAY Med Orders - Current: Current Medications Acetaminophen (Tylenol) 650 mg PO Q4H PRN PRN Reason: Pain (Mild 1-3)/fever Last Admin: 06/18/18 19:40 Dose: 650 mg Hydrocodone Bitart/Acetaminophen ([place] 325-5 Mg) 1 tab PO Q4H PRN PRN Reason: Pain (moderate 4-6) Al Hydroxide/Mg Hydroxide (Mag-Al Plus) 30 ml PO TID MANOJ Last Admin: 06/19/18 14:34 Dose: Not Given Albuterol/Ipratropium (Duoneb 3.0-0.5 Mg/3 Ml) 3 ml NEB Q4H PRN PRN Reason: Shortness Of Breath/wheezing Bisacodyl (Dulcolax) 5 mg PO DAILY PRN PRN Reason: Constipation Bisacodyl (Dulcolax) 10 mg RECTAL BID [facility] Last Admin: 06/19/18 10:23 Dose: Not Given Docusate Sodium (Colace) 100 mg PO BID PRN PRN Reason: Constipation Last Admin: 06/18/18 09:08 Dose: 100 mg Enoxaparin Sodium (Lovenox) 30 mg SUBCUT DAILY [facility] Last Admin: 06/19/18 09:55 Dose: 30 mg Hydralazine HCl (Apresoline) 20 mg IVPUSH Q4H PRN PRN Reason: Hypertension Hydralazine HCl (Apresoline) 20 mg IVPUSH Q4H PRN PRN Reason: Hypertension Hydromorphone HCl (Dilaudid) 0.25 mg IVPUSH Q2H PRN PRN Reason: Pain (severe 7-10) Last Admin: 06/19/18 14:06 Dose: 0.25 mg Dextrose/Lactated Ringer's (Dextrose 5%-Lactated Ringers) 1,000 mls @ 150 mls/ hr IV ASDIRECTED [facility] Last Admin: 06/19/18 10:52 Dose: 150 mls/hr Metoprolol Tartrate (Lopressor) 5 mg IVPUSH Q4H PRN PRN Reason: Tachycardia Metoprolol Tartrate (Lopressor) 5 mg IVPUSH Q4H PRN PRN Reason: Tachycardia Ondansetron HCl (Zofran) 4 mg IVPUSH Q6HR PRN PRN Reason: nausea Last Admin: 06/18/18 23:18 Dose: 4 mg Ondansetron HCl (Zofran Odt) 4 mg PO Q6H PRN PRN Reason: nausea, able to take PO Last Admin: 06/19/18 10:18 Dose: 4 mg Polyethylene Glycol (Miralax) 17 gm PO DAILY PRN PRN Reason: Constipation Senna/Docusate Sodium (Senna Plus) 1 tab PO BID PRN PRN Reason: Constipation Discontinued Medications Hydromorphone HCl (Dilaudid) 0.25 mg IVPUSH ONETIME ONE Stop: 06/17/18 21:03 Last Admin: 06/17/18 21:13 Dose: 0.25 mg Dextrose/Lactated Ringer's (Dextrose 5%-Lactated Ringers) 1,000 mls @ 250 mls/ hr IV ASDIRECTED [facility] Last Admin: 06/17/18 21:10 Dose: 250 mls/hr Potassium Chloride 10 meq/ (Premix) 100 mls @ 100 mls/hr IV Q1H [facility] Stop: 06/18/18 12:29 Last Admin: 06/18/18 13:52 Dose: 75 mls/hr Sodium Chloride (Normal Saline) 1,000 mls @ 100 mls/hr IV ASDIRECTED [facility] Stop: 06/19/18 18:29 Metoclopramide HCl (Reglan) 5 mg IVPUSH ONETIME ONE Stop: 06/17/18 21:02 Last Admin: 06/17/18 21:11 Dose: 5 mg Ondansetron HCl (Zofran) 4 mg IVPUSH ONETIME ONE Stop: 06/17/18 22:43 Last Admin: 06/17/18 22:52 Dose: 4 mg - Exam Quality Assessment: DVT Prophylaxis General: Alert, Oriented, Cooperative, No Acute Distress HEENT: Pupils Equal, Pupils Reactive, EOMI Neck: Trachea Midline, No JVD Lungs: Normal Respiratory Effort Cardiovascular: Regular Rate, Regular Rhythm GI/Abdominal Exam: Normal Bowel Sounds, Soft, Non-Tender, No Organomegaly, No Distention (Female) Exam: Deferred Back Exam: Normal Inspection Extremities: Normal Inspection, Non-Tender, Normal Capillary Refill Skin: Warm Neurological: No New Focal Deficit Psy/Mental Status: Alert, Normal Affect, Normal Mood - Problem List Review Problem List Initiated/Reviewed/Updated: Yes - My Orders Last 24 Hours: My Active Orders 06/18/18 15:00 Alum Hydrox/Mag Hydrox/Simeth [Mag-Al Plus] 30 ml PO TID 06/19/18 13:29 Patient Status [ADT] Routine 06/19/18 Lunch Clear Liquid Diet [DIET] - Plan Plan:: I/P: Acute: Nausea and vomiting -Reports nausea and vomiting for past 4 days -No hematemesis -No fever, No leukocytosis -Antiemetics as ordered -IV fluids as ordered -Blood cultures obtained and pending -Lactic acid 0.9 -CT Scan abdomen/pelvis ordered to r/o SBO -Negative, mild scattered stool throughout colon Dehydration -2/2 above -Unable to keep anything down -Elevated anion gap (17.0) -Mildly dry mucous membranes in ED -IV fluids as ordered Hyponatremia -Na 128 -IV fluids as ordered -Consider thermotabs PJ, improving -Unsure of baseline -Creatinine and GFR on last visit (11/08/15) were 1.4/36 -BUN 16-->15 -Creatinine 1.5-->1.3 -eGFR 33-->39 Constipation -Increased stool in right hemicolon and some in the rectal vault on abdominal x-ray -Likely worsened by above -No signs of bowel obstruction on abdominal X-ray -CT scan abdomen/pelvis ordered -Bowel medications as ordered -IV fluids as ordered -Clear liquid diet for now Query GERD Chronic: Hard of hearing Impaired vision Prior bowel obstruction Dementia Plan: Change to MS on telemetry Other orders as indicated above No home medications Routine AM labs DVT/PE prophylaxis: lovenox PT/OT [employer] Operator consult Code status: DNR/DNI; PCP: None - needs to establish
[2018-06-19] MEDS: Pantoprazole 40 MG Tab.CR PO SCH (16:19)
[2018-06-20] MEDS: Dextrose 5%-Lactated Ringers 1,000 ML IV SCH ×2 (00:15→06:53)
[2018-06-20] MEDS: Pantoprazole 40 MG Tab.CR PO SCH ×2 (06:53→15:52)
[2018-06-20] MEDS: Enoxaparin 30 MG/0.3 ML Syringe SUBCUT SCH (08:51)
[2018-06-20] MEDS: Bisacodyl 10 MG Supp RECTAL SCH ×3 (08:51→20:41)
[2018-06-20] MEDS: Aluminum Hydroxide/Magnesium Hydroxide/Simethicone Susp 30 ML Cup PO SCH ×4 (08:51→20:41)
--- NOTE | 2018-06-20 18:06 | PCM.PN ---
- General Info Date of Service: 06/20/18 Functional Status: Reports: Pain Controlled, Tolerating Diet, Ambulating, Urinating - Review of Systems General: Reports: No Symptoms HEENT: Reports: No Symptoms Pulmonary: Reports: No Symptoms Cardiovascular: Reports: No Symptoms Gastrointestinal: Reports: No Symptoms Genitourinary: Reports: No Symptoms Musculoskeletal: Reports: No Symptoms - Patient Data Vitals - Most Recent: Last Vital Signs Temp 36.6 C 06/20/18 08:44 Pulse 64 06/20/18 11:13 Resp 14 06/20/18 08:44 BP 135/62 06/20/18 11:13 Pulse Ox 96 06/20/18 11:13 Weight - Most Recent: 63.185 kg I&O - Last 24 Hours: Intake & Output 06/20/18 06/20/18 06/20/18 06:59 14:59 22:59 Intake Total 0174 938 2956 Balance 7932 543 9901 Lab Results Last 24 Hours: Laboratory Results - last 24 hr 06/20/18 06/20/18 Range/Units 06:05 06:05 WBC 6.11 (3.98-10.04) K/mm3 RBC 3.67 L (3.98-5.22) M/mm3 Hgb 11.1 L (11.2-15.7) gm/L Hct 34.3 (34.1-44.9) % MCV 93.5 (79.4-94.8) fl MCH 30.2 (25.6-32.2) pg MCHC 32.4 (32.2-35.5) g/dl RDW Std Deviation 41.9 (36.4-46.3) fL Plt Count 236 (182-369) K/mm3 MPV 10.8 (9.4-12.3) fl Neut % (Auto) 64.6 (34.0-71.1) % Lymph % (Auto) 19.8 (19.3-51.7) % [place] % (Auto) 12.1 (4.7-12.5) % Eos % (Auto) 3.1 (0.7-5.8) Baso % (Auto) 0.2 (0.1-1.2) % Neut # (Auto) 3.95 (1.56-6.13) K/mm3 Lymph # (Auto) 1.21 (1.18-3.74) K/mm3 [place] # (Auto) 0.74 H (0.24-0.36) K/mm3 Eos # (Auto) 0.19 (0.04-0.36) K/mm3 Baso # (Auto) 0.01 (0.01-0.08) K/mm3 Sodium 140 (136-145) mEq/L Potassium 3.9 (3.5-5.1) mEq/L Chloride 106 (98-107) mEq/L Carbon Dioxide 30 (21-32) mEq/L Anion Gap 7.9 (5-15) BUN 4 L (7-18) mg/dL Creatinine 1.3 H (0.55-1.02) mg/dL Est Cr Clr Drug Dosing 27.32 mL/min Estimated GFR (MDRD) 39 (>60) mL/min BUN/Creatinine Ratio 3.1 L (14-18) Glucose 113 (83-115) mg/dL Calcium 8.5 (8.5-10.1) mg/dL Magnesium 1.8 (1.8-2.4) mg/dl Nate Results Last 24 Hours: Microbiology 06/17/18 21:35 Aerobic Blood Culture - Preliminary Blood - Venous - Lab Draw NO GROWTH AFTER 2 DAYS Anaerobic Blood Culture - Preliminary NO GROWTH AFTER 2 DAYS 06/17/18 21:20 Aerobic Blood Culture - Preliminary Blood - Venous NO GROWTH AFTER 2 DAYS Anaerobic Blood Culture - Preliminary NO GROWTH AFTER 2 DAYS Med Orders - Current: Current Medications Acetaminophen (Tylenol) 650 mg PO Q4H PRN PRN Reason: Pain (Mild 1-3)/fever Last Admin: 06/18/18 19:40 Dose: 650 mg Hydrocodone Bitart/Acetaminophen ([place] 325-5 Mg) 1 tab PO Q4H PRN PRN Reason: Pain (moderate 4-6) Al Hydroxide/Mg Hydroxide (Mag-Al Plus) 30 ml PO TID [facility] Last Admin: 06/20/18 15:51 Dose: 30 ml Albuterol/Ipratropium (Duoneb 3.0-0.5 Mg/3 Ml) 3 ml NEB Q4H PRN PRN Reason: Shortness Of Breath/wheezing Bisacodyl (Dulcolax) 5 mg PO DAILY PRN PRN Reason: Constipation Bisacodyl (Dulcolax) 10 mg RECTAL BID [facility] Last Admin: 06/20/18 08:51 Dose: Not Given Docusate Sodium (Colace) 100 mg PO BID PRN PRN Reason: Constipation Last Admin: 06/18/18 09:08 Dose: 100 mg Enoxaparin Sodium (Lovenox) 30 mg SUBCUT DAILY [facility] Last Admin: 06/20/18 08:51 Dose: 30 mg Hydralazine HCl (Apresoline) 20 mg IVPUSH Q4H PRN PRN Reason: Hypertension Hydromorphone HCl (Dilaudid) 0.25 mg IVPUSH Q2H PRN PRN Reason: Pain (severe 7-10) Last Admin: 06/19/18 14:06 Dose: 0.25 mg Metoprolol Tartrate (Lopressor) 5 mg IVPUSH Q4H PRN PRN Reason: Tachycardia Ondansetron HCl (Zofran) 4 mg IVPUSH Q6HR PRN PRN Reason: nausea Last Admin: 06/18/18 23:18 Dose: 4 mg Ondansetron HCl (Zofran Odt) 4 mg PO Q6H PRN PRN Reason: nausea, able to take PO Last Admin: 06/19/18 16:19 Dose: 4 mg Pantoprazole Sodium (Protonix) 40 mg PO [facility]ID[facility] Last Admin: 06/20/18 15:52 Dose: 40 mg Polyethylene Glycol (Miralax) 17 gm PO DAILY PRN PRN Reason: Constipation Senna/Docusate Sodium (Senna Plus) 1 tab PO BID PRN PRN Reason: Constipation Discontinued Medications Hydralazine HCl (Apresoline) 20 mg IVPUSH Q4H PRN PRN Reason: Hypertension Hydromorphone HCl (Dilaudid) 0.25 mg IVPUSH ONETIME ONE Stop: 06/17/18 21:03 Last Admin: 06/17/18 21:13 Dose: 0.25 mg Dextrose/Lactated Ringer's (Dextrose 5%-Lactated Ringers) 1,000 mls @ 250 [facility]ls[facility] Last Admin: 06/17/18 21:10 Dose: 250 mls/hr Dextrose/Lactated Ringer's (Dextrose 5%-Lactated Ringers) 1,000 mls @ 150 mls/ hr IV ASDIRECTED [facility] Last Admin: 06/20/18 06:53 Dose: 150 mls/hr Potassium Chloride 10 meq/ (Premix) 100 mls @ 100 mls/hr IV Q1H [facility] Stop: 06/18/18 12:29 Last Admin: 06/18/18 13:52 Dose: 75 mls/hr Sodium Chloride (Normal Saline) 1,000 mls @ 100 mls/hr IV ASDIRECTED [facility] Stop: 06/19/18 18:29 Metoclopramide HCl (Reglan) 5 mg IVPUSH ONETIME ONE Stop: 06/17/18 21:02 Last Admin: 06/17/18 21:11 Dose: 5 mg Metoprolol Tartrate (Lopressor) 5 mg IVPUSH Q4H PRN PRN Reason: Tachycardia Ondansetron HCl (Zofran) 4 mg IVPUSH ONETIME ONE Stop: 06/17/18 22:43 Last Admin: 06/17/18 22:52 Dose: 4 mg - Exam Quality Assessment: DVT Prophylaxis General: Alert, Oriented, Cooperative, No Acute Distress HEENT: Pupils Equal, Pupils Reactive, EOMI Neck: Trachea Midline, No JVD Lungs: Normal Respiratory Effort Cardiovascular: Regular Rate GI/Abdominal Exam: Normal Bowel Sounds, Soft, Non-Tender, No Organomegaly, No Distention (Female) Exam: Deferred Back Exam: Normal Inspection Extremities: Normal Inspection, Non-Tender, Normal Capillary Refill Skin: Warm Neurological: No New Focal Deficit, Normal Gait, Normal Speech Psy/Mental Status: Alert, Normal Affect, Normal Mood - Problem List Review Problem List Initiated/Reviewed/Updated: Yes - My Orders Last 24 Hours: My Active Orders 06/20/18 16:44 Code Status [Resuscitation Status] Routine 06/20/18 Dinner Full Liquid Diet [DIET] - Plan Plan:: I/P: Acute: Nausea and vomiting -Reports nausea and vomiting for past 4 days -No hematemesis -No fever, No leukocytosis -Antiemetics as ordered -IV fluids as ordered -Blood cultures obtained and pending -Lactic acid 0.9 -CT Scan abdomen/pelvis ordered to r/o SBO -Negative, mild scattered stool throughout colon Dehydration -2/2 above -Unable to keep anything down -Elevated anion gap (17.0) -Mildly dry mucous membranes in ED -IV fluids as ordered--DCd Hyponatremia--improved -Na 128 -IV fluids as ordered -Consider thermotabs PJ, improved -Unsure of baseline -Creatinine and GFR on last visit (11/08/15) were 1.4/36 -BUN 16-->15 -Creatinine 1.5-->1.3 -eGFR 33-->39 Constipation--improved -Increased stool in right hemicolon and some in the rectal vault on abdominal x-ray -Likely worsened by above -No signs of bowel obstruction on abdominal X-ray -CT scan abdomen/pelvis ordered -Bowel medications as ordered -IV fluids as ordered -Clear liquid diet for now Query GERD Chronic: Hard of hearing Impaired vision Prior bowel obstruction Dementia Plan: Change to MS on telemetry Other orders as indicated above No home medications Routine AM labs DVT/PE prophylaxis: lovenox PT/OT [employer] Pilot consult Code status: DNR/DNI; PCP: None - needs to establish
[2018-06-21] MEDS: Acetaminophen 325 MG Tab PO PRN ×2 (05:29→11:15)
[2018-06-21] MEDS: Pantoprazole 40 MG Tab.CR PO SCH (06:06)
[2018-06-21] MEDS: Aluminum Hydroxide/Magnesium Hydroxide/Simethicone Susp 30 ML Cup PO SCH ×2 (08:55→14:45)
[2018-06-21] MEDS: Enoxaparin 30 MG/0.3 ML Syringe SUBCUT SCH (08:55)
[2018-06-21] MEDS: Bisacodyl 10 MG Supp RECTAL SCH (08:55)
[2018-06-21 11:21] VITALS: BP 123/59
--- NOTE | 2018-06-21 13:15 | PCM.DCSUM1 ---
Discharge Summary - Hospital Course Free Text/Narrative:: 87 year old female admitted with acute mental status change with hyponatremia, improved gradually. The patient complained of N/V with constipation. The lab results gradually improved. Diet was restarted after assessment for SBO and improvement of bowel function. The patient easily participated in PT/OT. Electrolyte and fluid replacement improved mental clarity and generalized weakness resolved. The patient was presumptively treated for GERD. This resulted in great improvement of her symptoms. She returned to her apartment with minimal med changes or additions. Primary Dx GERD Dehydration ARF Hyponatremia Dizziness Constipation Follow up PCP, 06/29/18 at 1030 hour Diet Heart Healthy HPI Initial Comments: Bridget Holder is an 87 yo female patient who presented to our ED yesterday evening with her daughter for vomiting. Patient has significant dementia however her daughter reports emesis has been ongoing for past 4 days. She reports she has been unable to keep anything down at all the day up to coming to the ED. Emesis reported to be bilious and light cooper in color as noted by the daughter. Nausea comes in waves according to the patient and she is noted to be a very vague historian. She reports diffuse abdominal pain and a prior bowel obstruction many years ago which required open surgery. Daughter reports as far she no she still has her gallbladder and appendix. Patient is very weak and palate. She is afebrile on exam. Patient prefers to lie still with her eyes closed but does ask questions when asked. Reports last bowel movement was 2 days ago but she is uncertain exactly. In the ED a 12-lead EKG was obtained showing sinus rhythm at a rate of 62 bpm. Left axis deviation was noted in the large P wave was also noted. LVH pattern was observed along with a nonspecific intraventricular conduction delay. T- wave flattening in V4 through V6 and lead II to along with T-wave inversion in III and aVF are noted along with a mildly prolonged QT. Temp is 36.6C. Pulse 55. Respirations 18. Blood pressure high at 174/72. Pulse ox 98%. Labs are obtained: WBC is normal at 9.97. Hemoglobin 13.6. Hematocrit 39.6. She is normocytic. Platelets good at 286,000. Neutrophils are elevated at 85%. Band neutrophils are noted to be 0. PT is 10.3. INR 0.94. Sodium is low at 128. Potassium 4.0. Chloride 92. Carbon dioxide 23. Anion gap is high at 17.0. BUN is 16. Creatinine 1.5. EGFR 33. Glucose is 113. Calcium 9.1. Magnesium 2.0. Total bilirubin 0.5. AST is 23, ALT 22, alkaline phosphatase 76. CK-MB is 2.6. Troponin is less than 0.017. CRP is 0.2. Protein 7.1. Albumin is 3.7. Lipase 141. Lactic acid is 0.9. ProBNP is 313. Urine ketones are noted to be 0.83. UA is negative however trace protein, 2+ ketones, trace intact blood are noted. Given 0.25 mg IV Dilaudid, 5 mg Reglan, 4 mg Zofran. She also started on D5 LR at 125 mils an hour. His abdomen is obtained and reportedly reveals increased stool throughout the right hemicolon and rectal full no signs of bowel obstruction bladder appears to be full and there is a deformity compatible with old fracture on the pubic symphysis of the left side. It's appears to be well healed. Nothing acute is noted. She subsequently admitted to the medical floor observation status on telemetry. She has a history of: Hard of hearing, impaired vision, prior bowel obstruction, dementia. She is a nonsmoker. She does not have a primary care provider listed. A DNR/DNI. Diagnosis: Stroke: No - Discharge Data Discharge Date: 06/21/18 Discharge Disposition: Home, Self-Care 01 Condition: Good - Patient Summary/Data Consults: Consultations 06/18/18 09:05 Consult to Occupational Therapy [OT Evaluation and Treatment] [CONS] Routine PT Evaluation and Treatment [CONS] Routine 06/18/18 10:02 Consult to Case Management/Procedures Nurse [CONS] Routine 06/18/18 14:09 Consult to Manager Channel [CONS] Routine - Patient Instructions Diet: Heart Healthy Diet Activity: As Tolerated Driving: Do Not Drive Showering/Bathing: May Shower Notify Provider of: Fever, Increased Pain, Nausea and/or Vomiting - Discharge Plan *PRESCRIPTION DRUG MONITORING PROGRAM REVIEWED*: Not Applicable *COPY OF PRESCRIPTION DRUG MONITORING REPORT IN PATIENT DONNA: Not Applicable Prescriptions/Med Rec: Bisacodyl [Dulcolax] 5 mg PO DAILY PRN #14 tablet PRN Reason: Constipation Docusate Sodium [Colace] 100 mg PO BID PRN #30 cap PRN Reason: Constipation Pantoprazole [ProTONIX] 40 mg PO BIDAC #60 tab.cr Polyethylene Glycol 3350 [MiraLAX] 17 gm PO DAILY PRN #60 packet PRN Reason: Constipation Home Medications: Home Meds Ibuprofen [Advil] 200 mg PO DAILY 06/17/18 [History] Bisacodyl [Dulcolax] 5 mg PO DAILY PRN #14 tablet 06/21/18 [Rx] Docusate Sodium [Colace] 100 mg PO BID PRN #30 cap 06/21/18 [Rx] Pantoprazole [ProTONIX] 40 mg PO BIDAC #60 tab.cr 06/21/18 [Rx] Polyethylene Glycol 3350 [MiraLAX] 17 gm PO DAILY PRN #60 packet 06/21/18 [Rx] Oxygen Therapy Mode: Room Air Patient Handouts: Constipation, Adult, [id number], Nausea and Vomiting, Adult , [id number], Abdominal Pain, Adult, [id number] Referrals: Nina Alfaro, [employer] [Ordering Only Provider] - 06/29/18 10:30 am (Please follow-up with your new primary care provider, Dr. Nina Alfaro, on ThursdayJune 29 at 1030am. Please arrive 15 minute early to get checked in with ID and insurance card. ) - Discharge Summary/Plan Comment DC Time >30 min.: No Discharge Summary/Plan Comment: I/P: Acute: Nausea and vomiting -Reports nausea and vomiting for past 4 days -No hematemesis -No fever, No leukocytosis -Antiemetics as ordered -IV fluids as ordered -Blood cultures obtained and pending -Lactic acid 0.9 -CT Scan abdomen/pelvis ordered to r/o SBO -Negative, mild scattered stool throughout colon Dehydration -2/2 above -Unable to keep anything down -Elevated anion gap (17.0) -Mildly dry mucous membranes in ED -IV fluids as ordered--DCd Hyponatremia--improved -Na 128 -IV fluids as ordered -Consider thermotabs PJ, improved -Unsure of baseline -Creatinine and GFR on last visit (11/08/15) were 1.4/36 -BUN 16-->15 -Creatinine 1.5-->1.3 -eGFR 33-->39 Constipation--improved -Increased stool in right hemicolon and some in the rectal vault on abdominal x-ray -Likely worsened by above -No signs of bowel obstruction on abdominal X-ray -CT scan abdomen/pelvis ordered -Bowel medications as ordered -IV fluids as ordered -Clear liquid diet for now Query GERD Chronic: Hard of hearing Impaired vision Prior bowel obstruction Dementia Plan: Change to MS on telemetry Other orders as indicated above No home medications Routine AM labs DVT/PE prophylaxis: lovenox PT/OT Manager Channel consult Code status: DNR/DNI; PCP: None - needs to establish - General Info Date of Service: 06/19/18 Functional Status: Reports: Pain Controlled, Tolerating Diet, Ambulating, Urinating - Review of Systems General: Reports: No Symptoms HEENT: Reports: No Symptoms Pulmonary: Reports: No Symptoms Cardiovascular: Reports: No Symptoms Gastrointestinal: Reports: No Symptoms Genitourinary: Reports: No Symptoms Musculoskeletal: Reports: No Symptoms Skin: Reports: No Symptoms Neurological: Reports: No Symptoms Psychiatric: Reports: No Symptoms - Patient Data Vitals - Most Recent: Last Vital Signs Temp 36.4 C 06/21/18 11:19 Pulse 73 06/21/18 11:19 Resp 18 06/21/18 11:19 BP 123/59 L 06/21/18 11:19 Pulse Ox 99 06/21/18 11:19 Weight - Most Recent: 63.14 kg I&O - Last 24 hours: Intake & Output 06/20/18 06/21/18 06/21/18 22:59 06:59 14:59 Intake Total 1720 300 120 Balance 1720 300 120 Lab Results - Last 24 hrs: Laboratory Results - last 24 hr 06/21/18 06/21/18 Range/Units 05:30 05:30 WBC 7.78 (3.98-10.04) K/mm3 RBC 3.88 L (3.98-5.22) M/mm3 Hgb 12.0 (11.2-15.7) gm/L Hct 36.9 (34.1-44.9) % MCV 95.1 H (79.4-94.8) fl MCH 30.9 (25.6-32.2) pg MCHC 32.5 (32.2-35.5) g/dl RDW Std Deviation 43.1 (36.4-46.3) fL Plt Count 274 (182-369) K/mm3 MPV 11.0 (9.4-12.3) fl Neut % (Auto) 65.4 (34.0-71.1) % Lymph % (Auto) 18.6 L (19.3-51.7) % [place] % (Auto) 11.7 (4.7-12.5) % Eos % (Auto) 3.9 (0.7-5.8) Baso % (Auto) 0.3 (0.1-1.2) % Neut # (Auto) 5.09 (1.56-6.13) K/mm3 Lymph # (Auto) 1.45 (1.18-3.74) K/mm3 [place] # (Auto) 0.91 H (0.24-0.36) K/mm3 Eos # (Auto) 0.30 (0.04-0.36) K/mm3 Baso # (Auto) 0.02 (0.01-0.08) K/mm3 Sodium 141 (136-145) mEq/L Potassium 3.8 (3.5-5.1) mEq/L Chloride 103 (98-107) mEq/L Carbon Dioxide 32 (21-32) mEq/L Anion Gap 9.8 (5-15) BUN 3 L (7-18) mg/dL Creatinine 1.4 H (0.55-1.02) mg/dL Est Cr Clr Drug Dosing 25.37 mL/min Estimated GFR (MDRD) 36 (>60) mL/min BUN/Creatinine Ratio 2.1 L (14-18) Glucose 90 (83-115) mg/dL Calcium 9.0 (8.5-10.1) mg/dL Magnesium 2.1 (1.8-2.4) mg/dl AKRIN Results - Last 24 hrs: Microbiology 06/17/18 21:35 Aerobic Blood Culture - Preliminary Blood - Venous - Lab Draw NO GROWTH AFTER 3 DAYS Anaerobic Blood Culture - Preliminary NO GROWTH AFTER 3 DAYS 06/17/18 21:20 Aerobic Blood Culture - Preliminary Blood - Venous NO GROWTH AFTER 3 DAYS Anaerobic Blood Culture - Preliminary NO GROWTH AFTER 3 DAYS Med Orders - Current: Current Medications Acetaminophen (Tylenol) 650 mg PO Q4H PRN PRN Reason: Pain (Mild 1-3)/fever Last Admin: 06/21/18 11:15 Dose: 650 mg Hydrocodone Bitart/Acetaminophen ([place] 325-5 Mg) 1 tab PO Q4H PRN PRN Reason: Pain (moderate 4-6) Al Hydroxide/Mg Hydroxide (Mag-Al Plus) 30 ml PO TID [facility] Last Admin: 06/21/18 08:55 Dose: Not Given Albuterol/Ipratropium (Duoneb 3.0-0.5 Mg/3 Ml) 3 ml NEB Q4H PRN PRN Reason: Shortness Of Breath/wheezing Bisacodyl (Dulcolax) 5 mg PO DAILY PRN PRN Reason: Constipation Bisacodyl (Dulcolax) 10 mg RECTAL BID [facility] Last Admin: 06/21/18 08:55 Dose: Not Given Docusate Sodium (Colace) 100 mg PO BID PRN PRN Reason: Constipation Last Admin: 06/18/18 09:08 Dose: 100 mg Enoxaparin Sodium (Lovenox) 30 mg SUBCUT DAILY [facility] Last Admin: 06/21/18 08:55 Dose: 30 mg Hydralazine HCl (Apresoline) 20 mg IVPUSH Q4H PRN PRN Reason: Hypertension Hydromorphone HCl (Dilaudid) 0.25 mg IVPUSH Q2H PRN PRN Reason: Pain (severe 7-10) Last Admin: 06/19/18 14:06 Dose: 0.25 mg Metoprolol Tartrate (Lopressor) 5 mg IVPUSH Q4H PRN PRN Reason: Tachycardia Ondansetron HCl (Zofran) 4 mg IVPUSH Q6HR PRN PRN Reason: nausea Last Admin: 06/18/18 23:18 Dose: 4 mg Ondansetron HCl (Zofran Odt) 4 mg PO Q6H PRN PRN Reason: nausea, able to take PO Last Admin: 06/19/18 16:19 Dose: 4 mg [facility] Admin: 06/21/18 06:06 Dose: 40 mg Polyethylene Glycol (Miralax) 17 gm PO DAILY PRN PRN Reason: Constipation Senna/Docusate Sodium (Senna Plus) 1 tab PO BID PRN PRN Reason: Constipation Discontinued Medications Hydralazine HCl (Apresoline) 20 mg IVPUSH Q4H PRN PRN Reason: Hypertension Hydromorphone HCl (Dilaudid) 0.25 mg IVPUSH ONETIME ONE Stop: 06/17/18 21:03 Last Admin: 06/17/18 21:13 Dose: 0.25 mg Dextrose/Lactated Ringer's (Dextrose 5%-Lactated Ringers) 1,000 mls @ 250 mls/ hr IV ASDIRECTED [facility] Last Admin: 06/17/18 21:10 Dose: 250 mls/hr Dextrose/Lactated Ringer's (Dextrose 5%-Lactated Ringers) 1,000 mls @ 150 mls/ hr IV ASDIRECTED [facility] Last Admin: 06/20/18 06:53 Dose: 150 mls/hr Potassium Chloride 10 meq/ (Premix) 100 mls @ 100 mls/hr IV Q1H [facility] Stop: 06/18/18 12:29 Last Admin: 06/18/18 13:52 Dose: 75 mls/hr Sodium Chloride (Normal Saline) 1,000 mls @ 100 mls/hr IV ASDIRECTED [facility] Stop: 06/19/18 18:29 Metoclopramide HCl (Reglan) 5 mg IVPUSH ONETIME ONE Stop: 06/17/18 21:02 Last Admin: 06/17/18 21:11 Dose: 5 mg Metoprolol Tartrate (Lopressor) 5 mg IVPUSH Q4H PRN PRN Reason: Tachycardia Ondansetron HCl (Zofran) 4 mg IVPUSH ONETIME ONE Stop: 06/17/18 22:43 Last Admin: 06/17/18 22:52 Dose: 4 mg - Exam Quality Assessment: Reports: DVT Prophylaxis General: Reports: Alert, Oriented, Cooperative, No Acute Distress HEENT: Reports: Pupils Equal, Pupils Reactive, EOMI Neck: Reports: Trachea Midline, No JVD Lungs: Reports: Normal Respiratory Effort Cardiovascular: Reports: Regular Rate, Regular Rhythm GI/Abdominal Exam: Normal Bowel Sounds, Soft, Non-Tender, No Organomegaly, No Distention (Female) Exam: Deferred Rectal (Female) Exam: Deferred Back Exam: Reports: Normal Inspection Extremities: Normal Inspection, Non-Tender, Normal Capillary Refill Skin: Reports: Warm Neurological: Reports: No New Focal Deficit, Normal Gait Psy/Mental Status: Reports: Alert, Normal Affect, Normal Mood
== END 2018-06-21 16:00 | disposition home or self-care (01) | DRG 641 ==
LOC: JD.ED 20:34 → JD.MS 06-18 00:44 → OBSVTOIN 06-19 13:29 → JD.MS 06-19 13:30
PROVIDERS: ADMIT Internal Medicine Cardiovascular Disease; ATTEND Internal Medicine Cardiovascular Disease
DX: E87.1 Hypo-osmolality and hyponatremia (principal); R41.82 Altered mental status, unspecified; N17.9 Acute kidney failure, unspecified; E87.2 Acidosis; E88.89 Other specified metabolic disorders; R10.84 Generalized abdominal pain; E86.9 Volume depletion, unspecified; E86.0 Dehydration; K21.9 Gastro-esophageal reflux disease without esophagitis; R42 Dizziness and giddiness; K59.01 Slow transit constipation; I10 Essential (primary) hypertension; F03.90 Unspecified dementia, unspecified severity, without behavioral disturbance, psychotic disturbance, mood disturbance, and anxiety; R06.00 Dyspnea, unspecified; R53.81 Other malaise; R53.1 Weakness; R53.83 Other fatigue; R06.02 Shortness of breath; N39.46 Mixed incontinence; M54.9 Dorsalgia, unspecified; R26.2 Difficulty in walking, not elsewhere classified; R35.0 Frequency of micturition; R11.2 Nausea with vomiting, unspecified; R10.9 Unspecified abdominal pain; H54.7 Unspecified visual loss; H91.90 Unspecified hearing loss, unspecified ear; H35.30 Unspecified macular degeneration; Z79.899 Other long term (current) drug therapy; Z66 Do not resuscitate
CPT/HCPCS: 36415 ×3; 71045; 74018; 74176; 80048; 80053 ×2; 81001; 82009 ×2; 82553; 83605; 83690; 83735 ×2; 83880; 83930; 84484; 85007; 85025; 85027; 85610; 86140; 87040 ×2; 93005; 96361; 96374; 96375; 97161; 97166; 97530; 99285; A9270 ×7; J1170 ×3; J1650 ×2; J2405 ×3; J2765; J3480 ×4; J7042 ×7; 96365; 96366; 96372; 96376; G0378

== ENCOUNTER 2018-09-13 07:40 | Emergency (ER) | payer MEDICAID, MEDICARE ==
[2018-09-13 07:57] VITALS: BP 175/80
[2018-09-13] MEDS ORDERED: Sodium Chloride 0.9% 10 ML Syringe FLUSH PRN (08:14)
[2018-09-13] MEDS ORDERED: Ondansetron 4 MG/2 ML SDV IVPUSH ONE (08:14)
[2018-09-13] MEDS ORDERED: HYDROmorphone 1 MG/ML Syringe IVPUSH ONE (08:14)
[2018-09-13] MEDS ORDERED: Sodium Chloride 0.9% 500 ML IV ONE (08:15)
--- NOTE | 2018-09-13 09:11 | EDM.PDOC ---
ED HPI GENERAL MEDICAL PROBLEM - General Chief Complaint: Abdominal Pain Stated Complaint: VOMITING Time Seen by Provider: 09/13/18 08:07 Source of Information: Reports: Patient, Family, RN Notes Reviewed (Daughter) - History of Present Illness INITIAL COMMENTS - FREE TEXT/NARRATIVE: 87-year-old female is brought in by daughter with abdominal pain for the past 2 days, severe nausea, not able to eat or drink well. Patient does have history of dementia so not able to give an accurate history. Daughter states that she does suffer from constipation but also has had prior bowel obstruction so does have concern of possible recurrent bowel obstruction or maybe just constipated. At this time she indicates her pain is primarily upper mid abdomen. No chest pain or difficulty breathing. No known fever. Unknown when she last had a BM. Abdominal Pain Score (Numeric/FACES): 7 - Related Data Allergies Allergy/AdvReac Type Severity Reaction Status Date / Time No Known Allergies Allergy Verified 09/13/18 07:57 Home Meds: Home Meds Ibuprofen [Advil] 200 mg PO DAILY 06/17/18 [History] Past Medical History HEENT History: Reports: Hard of Hearing, Impaired Vision Gastrointestinal History: Reports: Bowel Obstruction CLINICAL INFORMATICS PHYSICIAN History: Reports: Psychiatric History: Reports: Dementia - Past Surgical History Female Surgical History: Reports: Other (See Below) Other Female Surgeries/Procedures: prolapsed uterus with revision Musculoskeletal Surgical History: Reports: Other (See Below) Social & Family History - Family History Family Medical History: Noncontributory - Tobacco Use Smoking Status *Q: Never Smoker - Caffeine Use Caffeine Use: Reports: Coffee - Recreational Drug Use Recreational Drug Use: No - Living Situation & Occupation Living situation: Reports: , Alone Occupation: Retired ED ROS GENERAL - Review of Systems Review Of Systems: See Below Constitutional: Denies: Fever HEENT: Denies: Throat Pain Respiratory: Denies: Shortness of Breath Cardiovascular: Denies: Chest Pain GI/Abdominal: Reports: Constipation, Nausea, Vomiting Musculoskeletal: Reports: No Symptoms Skin: Reports: No Symptoms Neurological: Reports: No Symptoms ED EXAM, GI/ABD - Physical Exam Exam: See Below General Appearance: Alert, Mild Distress Throat/Mouth: Other Head: Atraumatic Neck: Supple, Full Range of Motion Respiratory/Chest: No Respiratory Distress, Lungs Clear, Normal Breath Sounds Cardiovascular: Regular Rate, Rhythm GI/Abdominal Exam: Soft, Tender. No: Guarding, Rebound (Very mild diffuse tenderness) Extremities: Normal Inspection. No: Pedal Edema, Leg Pain Neurological: Alert, No Motor/Sensory Deficits, Other Skin Exam: Warm (Pleasantly confused, does answer simple questions, does obey simple commands), Dry, Normal Color Course - Vital Signs Last Recorded V/S: Last Vital Signs Temp 97.8 F 09/13/18 07:50 Pulse 75 09/13/18 07:50 Resp 16 09/13/18 07:50 BP 175/80 H 09/13/18 07:50 Pulse Ox 96 09/13/18 07:50 - Orders/Labs/Meds Orders: Active Orders 24 hr Category Date Time Status Peripheral IV Care [RC] . DIRECTED Care 09/13/18 08:15 Active Abdomen 2V AP Flat Upright [CR] Stat Exams 09/13/18 09:08 Taken Sodium Chloride 0.9% [Saline Flush] Med 09/13/18 08:14 Active 10 ml FLUSH ASDIRECTED PRN Peripheral IV Insertion Adult [OM.PC] Stat Oth 09/13/18 08:14 Ordered Medication Orders Sodium Chloride (Saline Flush) 10 ml FLUSH ASDIRECTED PRN PRN Reason: Keep Vein Open Last Admin: 09/13/18 08:32 Dose: 10 ml Labs: Laboratory Tests 09/13/18 09/13/18 09/13/18 Range/Units 08:40 08:40 08:40 WBC 12.09 H (3.98-10.04) K/mm3 RBC 4.86 (3.98-5.22) M/mm3 Hgb 15.2 (11.2-15.7) gm/L Hct 43.7 (34.1-44.9) % MCV 89.9 (79.4-94.8) fl MCH 31.3 (25.6-32.2) pg MCHC 34.8 (32.2-35.5) g/dl RDW Std Deviation 41.7 (36.4-46.3) fL Plt Count 256 (182-369) K/mm3 MPV 10.9 (9.4-12.3) fl Neut % (Auto) 83.2 H (34.0-71.1) % Lymph % (Auto) 9.9 L (19.3-51.7) % [place] % (Auto) 6.5 (4.7-12.5) % Eos % (Auto) 0.1 L (0.7-5.8) Baso % (Auto) 0.1 (0.1-1.2) % Neut # (Auto) 10.06 H (1.56-6.13) K/mm3 Lymph # (Auto) 1.20 (1.18-3.74) K/mm3 [place] # (Auto) 0.79 H (0.24-0.36) K/mm3 Eos # (Auto) 0.01 L (0.04-0.36) K/mm3 Baso # (Auto) 0.01 (0.01-0.08) K/mm3 Manual Slide Review Normal smear Sodium 130 L (136-145) mEq/L Potassium 4.8 (3.5-5.1) mEq/L Chloride 95 L (98-107) mEq/L Carbon Dioxide 24 (21-32) mEq/L Anion Gap 15.8 H (5-15) BUN 14 (7-18) mg/dL Creatinine 1.4 H (0.55-1.02) mg/dL Est Cr Clr Drug Dosing 25.37 mL/min Estimated GFR (MDRD) 36 (>60) mL/min BUN/Creatinine Ratio 10.0 L (14-18) Glucose 131 H (83-115) mg/dL Calcium 9.6 (8.5-10.1) mg/dL Total Bilirubin 0.6 (0.2-1.0) mg/dL AST 20 (15-37) U/L ALT 17 (14-59) U/L Alkaline Phosphatase 84 (46-116) U/L C-Reactive Protein < 0.2 (<1.0) mg/dL Total Protein 7.3 (6.4-8.2) g/dl Albumin 3.6 (3.4-5.0) g/dl Globulin 3.7 gm/dL Albumin/Globulin Ratio 1.0 (1-2) Meds: Medications Generic Name Dose Route Start Last Admin Trade Name Freq PRN Reason Stop Dose Admin Sodium Chloride 10 ml 09/13/18 08:14 09/13/18 08:32 Saline Flush FLUSH 10 ml ASDIRECTED PRN Administration Keep Vein Open Discontinued Medications Generic Name Dose Route Start Last Admin Trade Name [place] PRN Reason Stop Dose Admin Hydromorphone HCl 0.25 mg 09/13/18 08:14 09/13/18 08:31 Dilaudid IVPUSH 09/13/18 08:15 0.25 mg ONETIME ONE Administration Sodium Chloride 500 mls @ 999 mls/hr 09/13/18 08:15 09/13/18 08:30 Normal Saline IV 09/13/18 08:45 999 mls/hr .BOLUS ONE Administration Ondansetron HCl 4 mg 09/13/18 08:14 09/13/18 08:31 Zofran IVPUSH 09/13/18 08:15 4 mg ONETIME ONE Administration Departure - Departure Time of Disposition: 09:51 Disposition: Home, Self-Care 01 Condition: Fair Clinical Impression: Abdominal pain Qualifiers: Abdominal location: generalized Qualified Code(s): R10.84 - Generalized abdominal pain Constipation Qualifiers: Constipation type: unspecified constipation type Qualified Code(s): K59.00 - Constipation, unspecified - Discharge Information Referrals: PCP,None [Primary Care Provider] - Forms: ED Department Discharge Additional Instructions: Encourage water, drink plenty of water to maintain hydration, stool softener once daily will be safe and should be helpful, laxative this morning such as MiraLAX, you may repeated dosage this evening if needed, and continue that intermittently as needed. Follow up clinic if not much better within 2 days, return to ED as needed if symptoms worsening in any way - My Orders Last 24 Hours: My Active Orders 09/13/18 08:14 Sodium Chloride 0.9% [Saline Flush] 10 ml FLUSH ASDIRECTED PRN Peripheral IV Insertion Adult [OM.PC] Stat 09/13/18 08:15 Peripheral IV Care [RC] . DIRECTED 09/13/18 09:08 Abdomen 2V AP Flat Upright [CR] Stat - Assessment/Plan Last 24 Hours: My Active Orders 09/13/18 08:14 Sodium Chloride 0.9% [Saline Flush] 10 ml FLUSH ASDIRECTED PRN Peripheral IV Insertion Adult [OM.PC] Stat 09/13/18 08:15 Peripheral IV Care [RC] . DIRECTED 09/13/18 09:08 Abdomen 2V AP Flat Upright [CR] Stat
--- NOTE | 2018-09-13 09:53 | CR ---
Abdomen: Supine and upright views of the abdomen were obtained. Comparison: Prior abdominal x-ray of 06/17/18. Scoliosis is present within the spine. Old healed fracture is noted within the left pubic symphysis. Calcifications are noted within the pelvis which are compatible with phleboliths. Bowel gas pattern is normal. No free air is seen. Impression: 1. Incidental findings. Nothing acute is seen on two-view abdominal x-ray. Diagnostic code #2
== END 2018-09-13 10:05 | disposition home or self-care (01) ==
LOC: JD.ED 07:40
DX: K59.00 Constipation, unspecified (principal); Z79.899 Other long term (current) drug therapy
CPT/HCPCS: 36415; 74019; 80053; 85025; 86140; 96361; 96374; 96375; 99284; J1170; J2405; J7040

== ENCOUNTER 2022-04-30 17:33 | Emergency (ER) | payer MEDICARE ==
[2022-05-01 08:14] VITALS: BP 122/67; PULSE 82
== END 2022-04-30 19:35 | disposition home or self-care (01) ==
LOC: JD.ED 17:33
DX: M54.9 Dorsalgia, unspecified (principal)
CPT/HCPCS: 99284